=== PATIENT | female | born 1940 | race Caucasian/White ===

== ENCOUNTER 2020-09-18 07:10 | Day surgery (SDC) | payer OTHER ==
[~2020-09-18] VITALS: Ht 162.6 cm; Wt 59.2 kg
[~2020-09-18 07:10] MED LIST: ATOR40TA PO; LISI5 PO; METO25ER PO
[2020-09-18] MEDS ORDERED: TIMO.5OPSO (07:19)
--- NOTE | 2020-09-18 07:25 | NUR ---
09/18/20 0725 Lily Avalos TETRACAINE 0723 PLEDGET 0725 PLACED IN LEFT EYE BY [email or web address].
== END 2020-09-18 08:45 | disposition home or self-care (01) ==
LOC: ORSCSDS 07:10
PROVIDERS: Ophthalmology
PROC: 08RK3JZ Replacement of Left Lens with Synthetic Substitute, Percutaneous Approach (ICD-10-PCS; principal; 2020-09-18 08:00)
DX: H25.12 Age-related nuclear cataract, left eye (principal); I10 Essential (primary) hypertension; Z87.891 Personal history of nicotine dependence; Z79.82 Long term (current) use of aspirin; Z79.899 Other long term (current) drug therapy
CPT/HCPCS: J2001; J2250; J3010; J3301; J7040; V2632

== ENCOUNTER 2022-02-26 12:14 | Inpatient (IN) | payer OTHER ==
[~2022-02-26] VITALS: Ht 167.6 cm; Wt 60.0 kg
[~2022-02-26 12:14] MED LIST changes: +TIMO.5OPSO BOTHEYES
[2022-02-26 15:41] LABS: BASOPHILS PERCENT AUTO 1 % (0-2); EOSINOPHILS ABSOLUTE AUTO 0.02 K/mm3 (0.00-0.68); EOSINOPHILS PERCENT AUTO 0 % (0-6); Hematocrit 46.2 % (33.0-51.0); Hemoglobin 15.7 g/dL (11.5-16.0); IMMATURE GRAN ABSOLUTE AUTO 0.16 K/mm3 (0.00-0.10); IMMATURE GRAN PERCENT AUTO 1 % (0-1); LYMPHOCYTES ABSOLUTE AUTO 1.04 K/mm3 (0.84-5.20); LYMPHOCYTES PERCENT AUTO 5 % (21-46); MONOCYTES ABSOLUTE AUTO 0.87 K/mm3 (0.16-1.47); MONOCYTES PERCENT AUTO 4 % (4-13); Mean Corpuscular HGB 33.8 pg (26.0-34.0); Mean Corpuscular Volume 100 fL (80-100); NEUTROPHILS ABSOLUTE AUTO 18.38 K/mm3 (1.96-9.15); NEUTROPHILS PERCENT AUTO 89 % (41-73); RDW Coefficient Variation 12.5 % (11.7-14.2); RDW Standard Deviation 46.3 fL (35.1-46.3); Red Blood Cell Count 4.64 M/mm3 (3.80-5.20); White Blood Cell Count 20.57 K/mm3 (4.00-11.30)
[2022-02-26 16:08] LABS: Mean Platelet Volume 10.2 fL (9.1-12.4); Platelet Count 252 K/mm3 (150-400)
[2022-02-26 17:04] LABS: Albumin, Blood 4.1 g/dL (3.4-5.0); Albumin/Globulin Ratio 1.1 (0.8-1.8); Bilirubin, Total 1.2 mg/dL (0.1-1.0); Bun/Creatinine Ratio 27.4 (12.0-20.0); Calcium, Blood 10.4 mg/dL (8.5-10.1); Creatinine, Blood 0.69 mg/dL (0.40-1.00); Globulin, Blood 3.9 g/dL (2.2-4.0); Potassium, Blood 4.5 mmol/L (3.5-5.5)
[2022-02-27 05:03] LABS: BASOPHILS ABSOLUTE AUTO 0.07 K/mm3 (0.00-0.23); BASOPHILS PERCENT AUTO 1 % (0-2); EOSINOPHILS ABSOLUTE AUTO 0.08 K/mm3 (0.00-0.68); EOSINOPHILS PERCENT AUTO 1 % (0-6); Hematocrit 41.8 % (33.0-51.0); Hemoglobin 14.6 g/dL (11.5-16.0); IMMATURE GRAN ABSOLUTE AUTO 0.04 K/mm3 (0.00-0.10); IMMATURE GRAN PERCENT AUTO 0 % (0-1); LYMPHOCYTES ABSOLUTE AUTO 1.65 K/mm3 (0.84-5.20); LYMPHOCYTES PERCENT AUTO 13 % (21-46); MONOCYTES ABSOLUTE AUTO 1.06 K/mm3 (0.16-1.47); MONOCYTES PERCENT AUTO 8 % (4-13); Mean Corpuscular HGB 33.3 pg (26.0-34.0); Mean Corpuscular HGB Conc 34.9 g/dL (31.5-36.5); NEUTROPHILS ABSOLUTE AUTO 10.29 K/mm3 (1.96-9.15); NEUTROPHILS PERCENT AUTO 78 % (41-73); Platelet Count 236 K/mm3 (150-400); RDW Coefficient Variation 12.3 % (11.7-14.2); RDW Standard Deviation 42.4 fL (35.1-46.3); Red Blood Cell Count 4.38 M/mm3 (3.80-5.20); White Blood Cell Count 13.19 K/mm3 (4.00-11.30)
[2022-02-27 05:34] LABS: Albumin, Blood 3.5 g/dL (3.4-5.0); Albumin/Globulin Ratio 1.1 (0.8-1.8); Bun/Creatinine Ratio 34.4 (12.0-20.0); Calcium, Blood 9.3 mg/dL (8.5-10.1); Creatinine, Blood 0.64 mg/dL (0.40-1.00); Globulin, Blood 3.2 g/dL (2.2-4.0); Potassium, Blood 3.7 mmol/L (3.5-5.5); Total Protein, Blood 6.7 g/dL (6.4-8.2)
[2022-02-27 05:44] LABS: Mean Corpuscular Volume 95 fL (80-100)
--- NOTE | 2022-02-27 06:11 | NUR ---
ASSUMED CARE OF PATIENT AT 00:55 UPON ADMISSION TO PCU 2 FROM ER. UPON ARRIVAL, DILTIAZEM DRIP WAS INFUSING AT RATE OF 5 MG PER HOUR DUE TO PATIENT HAVING HAD ATRIAL FIBRILLATION WITH RAPID VENTRICULAR RATE EARLIER. WHEN PATIENT ARRIVED, HER HEART RATE WAS IN THE 90S - LOW 100S AND RHYTHM WAS SINUS RHYTHM WITH A FIRST DEGREE AV BLOCK AND FREQUENT PREMATURE ATRIAL COMPLEXES AND OCCASIONAL PVCs. AT 02:20, I TURNED OFF THE CARDIZEM DRIP AND ADMINISTERED THE ORDERED DOSE OF ORAL METOPROLOL TARTRATE. HEART RATE REMAINED IN THE 70S - 80S THROUGHOUT MOST OF THE REMAINDER OF THE NIGHT. MS. HER AMBULATES WELL WITHOUT ASSISTANCE, PERFORMS HER OWN MARIA ESTHER CARE AND PREFERS TO BE INDEPENDENT POSSIBLE WITH ADLs. SHE WAS COMPLIANT WITH NOT GETTING UP WITHOUT STAFF PRESENT THROUGHOUT THE NIGHT AND USED HER CALL LIGHT APPROPRIATELY. SHE DOES REPORT CHRONIC INCONTINENCE AND USES PADS AT HOME, AND IS WEARING DEPENDS HERE. TRENDING TROPONIN AND CPK EVERY EIGHT HOURS. TROPONIN WAS ELEVATED AT 314, THEN 284, WITH ONE REMAINING AT 13:00 TODAY. PT HAS DENIED ANY CHEST PAIN OR PRESSURE AT ANY TIME SINCE SHE ARRIVED TO THE ER. SHE CONTINUES TO EXPERIENCE SOME DYSPNEA WITH AMBULATION, AND REPORTS THAT IS MUCH IMPROVED.
[2022-02-27 06:23] LABS: CPK Creatine Kinase 74 U/L (26-193)
[2022-02-27 14:11] LABS: CPK Creatine Kinase 103 U/L (26-193)
--- NOTE | 2022-02-27 19:12 | NUR ---
PT ALERT NO S/S OF ACUTE DISTRESS, SAFETY MEASURES IN PLACE. REPORT GIVEN TO ON COMING NURSE.
--- NOTE | 2022-02-27 19:13 | NUR ---
PT ALERT NO S/S OF ACUTE DISTRESS, SAFETY MEASURES IN PLACE. REPORT GIVEN TO ON COMING NURSE.
--- NOTE | 2022-02-27 20:33 | NUR ---
EDUCAITON PROVIDED REGARDING BENEFITS TO USING PUREWICK OVERNIGHT DUE TO PATIENT'S CHRONIC INCONTINENCE. ALSO, NANDINI IS RECEIVING A DIURETIC AND USE OF THE PUREWICK WILL ALLOW FOR BETTER TRACKING OF URINE OUTPUT. MS. HER AGREED TO PLACEMENT OF PUREWICK FOR OVERNIGHT USE.
[2022-02-28 04:12] LABS: Hematocrit 41.7 % (33.0-51.0); Hemoglobin 14.4 g/dL (11.5-16.0)
[2022-02-28 04:45] LABS: Albumin, Blood 3.4 g/dL (3.4-5.0); Anion Gap 6 mmol/L (6-16); Blood Urea Nitrogen 25 mg/dL (8-24); Bun/Creatinine Ratio 41.7 (12.0-20.0); CO2, Blood 32 mmol/L (21-32); Calcium, Blood 9.4 mg/dL (8.5-10.1); Chloride, Blood 98 mmol/L (98-108); Glomerular Filtration Rate 91 (60-); Glucose, Blood 97 mg/dL (70-99); Phosphorus, Blood 2.9 mg/dL (2.5-4.9); Potassium, Blood 3.1 mmol/L (3.5-5.5); Sodium, Blood 136 mmol/L (136-145)
--- NOTE | 2022-02-28 06:32 | NUR ---
NO ACUTE EVENTS OVERNIGHT LAST NIGHT. HEART RATE REMAINS IN THE 70S - 90S RANGE. SINUS RHYTHM WITH 1ST DEGREE AV BLOCK, PACs AND PVCs. NO COMPLAINTS OF CHEST PAIN OR PRESSURE. PT REPORTS LESS SHORTNESS OF BREATH WITH ACTIVITY. USE OF PUREWICK OVERNIGHT WAS SUCCESSFUL. USE OF PUREWICK OVERNIGHT WAS SUCCESSFUL IN OBTAINING A MORE ACCURATE MEASUREMENT OF URINE OUTPUT PATIENT HAS ISSUES WITH INCONTINENCE AT BASELINE. TODAY'S WEIGHT IS 60.2 KG, WHICH IS DOWN 1.8 KG FROM ADMISSION.
--- NOTE | 2022-02-28 18:08 | NUR ---
END OF SHIFT: NEURO: PATIENT IS ALERT AND ORIENTED, SLIGHTLY FORGETFUL ON NEW EDUCATION AND TEACHING. PLEASANT COOPERATIVE WITH CARE NOC CONERNS, WEAKNESS THAT IS AGE RELATED STILL VERY INDEPENDENT IN THE ROOM SBA. PULM: IMPROVEMENT TO LUNG SOUNDS, NO CONCERNS SPO2 99% OR > CARDIAC: PATIENT DENIES CHEST PAIN PRESSURE OR SOB. NORMOTENSIVE THIS EVENING. NO CONCERNS FROM THIS RN. DIURESING WELL. GI/: PUREWIK IN PLACE AT PATIENT REQUEST DUE TO DIURESING. RESPONDING WELL. K+ 4.1 THIS EVENING. DENIED BED BATH TO THIS RN AT THIS TIME. SKIN: ENCOURAGED 2 Q TURNING PATIENT WALKS OCC TO FREQUENTLY. NO CONCERNS CONTINUE TO MONITOR. WILL CONTINUE TO MONITOR UNTIL SHIFT CHANGE. NO CONCERNS BESIDES DISCHARGE AND A FLU SHOT FROM PATIENT.
[2022-03-01 04:24] LABS: BASOPHILS ABSOLUTE AUTO 0.05 K/mm3 (0.00-0.23); BASOPHILS PERCENT AUTO 1 % (0-2); EOSINOPHILS ABSOLUTE AUTO 0.24 K/mm3 (0.00-0.68); EOSINOPHILS PERCENT AUTO 3 % (0-6); Hematocrit 43.1 % (33.0-51.0); IMMATURE GRAN ABSOLUTE AUTO 0.02 K/mm3 (0.00-0.10); IMMATURE GRAN PERCENT AUTO 0 % (0-1); LYMPHOCYTES ABSOLUTE AUTO 1.85 K/mm3 (0.84-5.20); LYMPHOCYTES PERCENT AUTO 21 % (21-46); MONOCYTES ABSOLUTE AUTO 0.74 K/mm3 (0.16-1.47); MONOCYTES PERCENT AUTO 8 % (4-13); Mean Corpuscular HGB 33.8 pg (26.0-34.0); Mean Corpuscular HGB Conc 34.8 g/dL (31.5-36.5); Mean Corpuscular Volume 97 fL (80-100); Mean Platelet Volume 10.3 fL (9.1-12.4); NEUTROPHILS ABSOLUTE AUTO 5.97 K/mm3 (1.96-9.15); NEUTROPHILS PERCENT AUTO 67 % (41-73); Platelet Count 239 K/mm3 (150-400); RDW Coefficient Variation 12.3 % (11.7-14.2); RDW Standard Deviation 44.4 fL (35.1-46.3); Red Blood Cell Count 4.44 M/mm3 (3.80-5.20); White Blood Cell Count 8.87 K/mm3 (4.00-11.30)
[2022-03-01 04:40] LABS: Bun/Creatinine Ratio 48.9 (12.0-20.0); Calcium, Blood 9.2 mg/dL (8.5-10.1); Creatinine, Blood 0.63 mg/dL (0.40-1.00); Potassium, Blood 3.7 mmol/L (3.5-5.5)
--- NOTE | 2022-03-01 06:22 | NUR ---
NO ACUTE EVENTS OVERNIGHT LAST NIGHT. NO CHANGE IN PATIENT STATUS FROM PREVIOUS NOTE FROM THIS RN DOCUMENTED ON 02/28/22
--- NOTE | 2022-03-01 08:33 | NUR ---
ASSUMPTION OF CARE: PATIENT IS COMPLETELY ALERT AND ORIENTED. STILL UTE M[place]. PATIENT HAS BEEN PLEASANT COOPERATIVE WITH CARE DENIES CHEST PAIN PRESSURE OR SOB. ENDORSES BEING IN NO PAIN, BLOOD PRESSURE IS SLIGHTLY LOWER, CXR THIS AM AWAITING RESULTS. PATIENT EAGER TO DISCHARGE. PURWIK IN PLACE AT PATIENTS CONVIENENCE AND ACCURATE I/O. CURRENTLY HOLDING THIS AM LASIX PATIENT APPEARS TO BE DRY AND AWAITING CXR RESULTS. PATIENT IS SR 1' WITH PVC. NO CONCERNS FROM THIS RN OR PATIENT BESIDES DISCHARGE PLANNING.
[2022-03-01] MEDS ORDERED: TORSE20 PO (10:56)
[2022-03-01] MEDS ORDERED: XARELTO20 M1 PO (10:56)
--- NOTE | 2022-03-01 12:00 | NUR ---
DISCHARGE SUMMARY: CXR SHOWED NO PULM EDEMA, PATIENT HAS INCREASED EXERTION AND DECREASED DYSPNEA. PATIENT HAS BEEN PLEASANT COOPERATIVE, UNDERSTOOD ALL DISCHARGE INSTRUCTIONS, APPROPRIATE TIME FOR QUESTIONS AND CONCERNS WERE ANSWERED AND MET. PATIENT HAS NO FURTHER QUESTIONS COMMENTS OR CONCERNS AT TIME OF DISCHARGE. PATIENT IS IN NO ACUTE SIGN OF DISTRESS. DENIES CHEST PAIN PRESSURE OR SOB. PATIENT IV AND TELE DC'D. PATIENT IS UNDERSTANDING OF THE PLAN. PATIENT WAS WHEELED OUT TO TAXI BY RN PER PATIENT REQUEST. NO CONCERNS FROM THIS RN AT TIME OF DISCHARGE. PATIENT ON RA AT TIME OF DISCHARGE.
== END 2022-03-01 11:56 | disposition home or self-care (01) | DRG 280 ==
LOC: ER 12:14 → PCU 20:21 → ERHOLD 20:21 → PCU 02-27 01:02
PROVIDERS: Family Medicine Adult Medicine; Student in an Organized Health Care Education/Training Program; ADMIT Internal Medicine
DX: I11.0 Hypertensive heart disease with heart failure (principal); I50.31 Acute diastolic (congestive) heart failure; I21.A1 Myocardial infarction type 2; J96.01 Acute respiratory failure with hypoxia; Z28.21 Immunization not carried out because of patient refusal; I48.91 Unspecified atrial fibrillation; E78.5 Hyperlipidemia, unspecified; I44.0 Atrioventricular block, first degree; Z87.891 Personal history of nicotine dependence; Z90.710 Acquired absence of both cervix and uterus; Z98.890 Other specified postprocedural states; Z79.899 Other long term (current) drug therapy
CPT/HCPCS: 36415; 71045; 80048; 80053; 80069; 82550; 83735; 83880; 84132; 84443; 84484; 85014; 85018; 85025; 93005; 93010; 93306; 96365; 96366; 96375; 96376; 99285-25; A9270; J1940; J3475

== ENCOUNTER → 2022-05-26 | Outpatient (CLI) | payer OTHER ==
[~2022-05-26] MED LIST changes: +TORSE20 PO; +XARELTO20 M1 PO
[2022-05-26 18:11] LABS: Bun/Creatinine Ratio 32.6 (12.0-20.0); Calcium, Blood 9.4 mg/dL (8.5-10.1); Creatinine, Blood 0.74 mg/dL (0.40-1.00); Potassium, Blood 4.5 mmol/L (3.5-5.5)
== END | disposition home or self-care (01) ==
LOC: LAB 17:05 → LAB SHORT 17:05
PROVIDERS: Family Medicine
DX: E87.6 Hypokalemia (principal)
CPT/HCPCS: 80048

== ENCOUNTER → 2022-12-10 | Outpatient (CLI) | payer OTHER ==
[2022-12-10 17:11] LABS: BASOPHILS ABSOLUTE AUTO 0.06 K/mm3 (0.00-0.23); BASOPHILS PERCENT AUTO 1 % (0-2); EOSINOPHILS ABSOLUTE AUTO 0.12 K/mm3 (0.00-0.68); EOSINOPHILS PERCENT AUTO 2 % (0-6); Hematocrit 46.2 % (33.0-51.0); Hemoglobin 15.7 g/dL (11.5-16.0); IMMATURE GRAN ABSOLUTE AUTO 0.02 K/mm3 (0.00-0.10); IMMATURE GRAN PERCENT AUTO 0 % (0-1); LYMPHOCYTES ABSOLUTE AUTO 0.69 K/mm3 (0.84-5.20); LYMPHOCYTES PERCENT AUTO 9 % (21-46); MONOCYTES ABSOLUTE AUTO 0.45 K/mm3 (0.16-1.47); MONOCYTES PERCENT AUTO 6 % (4-13); Mean Corpuscular HGB 33.4 pg (26.0-34.0); Mean Corpuscular Volume 98 fL (80-100); Mean Platelet Volume 11.4 fL (9.1-12.4); NEUTROPHILS ABSOLUTE AUTO 6.47 K/mm3 (1.96-9.15); NEUTROPHILS PERCENT AUTO 83 % (41-73); Platelet Count 219 K/mm3 (150-400); RDW Coefficient Variation 12.4 % (11.7-14.2); RDW Standard Deviation 44.9 fL (35.1-46.3); White Blood Cell Count 7.81 K/mm3 (4.00-11.30)
[2022-12-10 20:33] LABS: Bun/Creatinine Ratio 19.5 (12.0-20.0); Calcium, Blood 9.5 mg/dL (8.5-10.1); Creatinine, Blood 0.77 mg/dL (0.40-1.00); Potassium, Blood 4.3 mmol/L (3.5-5.5)
== END | disposition home or self-care (01) ==
LOC: LAB SHORT 15:35 → LAB 15:35
PROVIDERS: Family Medicine
DX: E87.6 Hypokalemia (principal); D64.9 Anemia, unspecified
CPT/HCPCS: 80048; 85025

== ENCOUNTER → 2024-08-28 | Outpatient (CLI) | payer OTHER ==
[2024-08-28 18:02] LABS: Hematocrit 42.6 % (33.0-51.0); Hemoglobin 14.5 g/dL (11.5-16.0); Mean Corpuscular HGB Conc 34.0 g/dL (31.5-36.5); Mean Corpuscular Volume 100 fL (80-100); NRBC ABSOLUTE 0.00 K/mm3 (0.00-0.02); NRBC Auto 0.0 /100 WBC (0.0-0.2); Platelet Count 213 K/mm3 (150-400); RDW Coefficient Variation 12.3 % (11.7-14.2); RDW Standard Deviation 45.1 fL (35.1-46.3)
[2024-08-28 19:41] LABS: Alanine Aminotransfer (ALT/SGP 29 U/L (12-78); Albumin, Blood 4.0 g/dL (3.4-5.0); Albumin/Globulin Ratio 1.1 (0.8-1.8); Anion Gap 10 mmol/L (3-11); Aspartate Aminotrans (AST/SGOT 24 U/L (12-37); Bilirubin, Total 1.2 mg/dL (0.1-1.0); Blood Urea Nitrogen 14 mg/dL (8-24); CHOL/HDL RATIO 2.6; CO2, Blood 27 mmol/L (21-32); Calcium, Blood 9.4 mg/dL (8.5-10.1); Chloride, Blood 105 mmol/L (98-108); Cholesterol 225 mg/dL (50-200); Creatinine, Blood 0.61 mg/dL (0.40-1.00); Globulin, Blood 3.7 g/dL (2.2-4.0); Glucose, Blood 108 mg/dL (70-99); HDL Cholesterol 86 mg/dL (>39); LDL/HDL RATIO 1.4; Low Density Lipoprotein Chol 123 mg/dL (0-110); Potassium, Blood 3.8 mmol/L (3.5-5.5); Sodium, Blood 138 mmol/L (136-145); Total Protein, Blood 7.7 g/dL (6.4-8.2); Triglycerides 82 mg/dL (30-160); Very Low Density Lipoprot Chol 16 mg/dL (6-32)
== END ==
LOC: LAB 16:43 → LAB SHORT 16:43
PROVIDERS: Student in an Organized Health Care Education/Training Program
DX: Z11.4 Encounter for screening for human immunodeficiency virus [HIV] (principal); E78.5 Hyperlipidemia, unspecified; R53.83 Other fatigue
CPT/HCPCS: 80053; 80061; 84443; 85027